=== PATIENT | female | born 1945 | race Caucasian/White ===

== ENCOUNTER 2022-07-15 14:50 | Emergency (ER) | payer OTHER, BC ==
[2022-07-15] MEDS ORDERED: KETOROLAC TROMETHAMINE 30 MG/1 ML VIAL IM ONE (15:02)
[2022-07-15] MEDS ORDERED: KETOROLAC TROMETHAMINE 30 MG/1 ML VIAL ONE (15:04)
[2022-07-15 15:06] VITALS: BP 120/80; PULSE 86; RESP 18; TEMP 98.7; BMI 24.8
== END 2022-07-15 15:50 | disposition home or self-care (01) ==
LOC: FER 14:50
PROC: 3E0233Z Introduction of Anti-inflammatory into Muscle, Percutaneous Approach (ICD-10-PCS; principal; 2022-07-15)
DX: M25.561 Pain in right knee (principal)
CPT/HCPCS: 93971-TC; 99284-25

== ENCOUNTER 2024-05-06 07:37 | Day surgery (SDC) | payer OTHER, BC ==
[2024-05-03 13:38] VITALS: BMI 25.9
[2024-05-06 09:52] VITALS: RESP 18
[2024-05-06 11:12] VITALS: TEMP 97.8
[2024-05-06 12:02] VITALS: BP 135/65; PULSE 85
== END 2024-05-06 12:42 | disposition home or self-care (01) ==
LOC: JASU-ENDO 07:37
PROVIDERS: ATTEND Internal Medicine Gastroenterology
PROC: 0DB68ZX Excision of Stomach, Via Natural or Artificial Opening Endoscopic, Diagnostic (ICD-10-PCS; 2024-05-06)
PROC: 0DB78ZX Excision of Stomach, Pylorus, Via Natural or Artificial Opening Endoscopic, Diagnostic (ICD-10-PCS; 2024-05-06)
PROC: 0DJD8ZZ Inspection of Lower Intestinal Tract, Via Natural or Artificial Opening Endoscopic (ICD-10-PCS; principal; 2024-05-06 10:00)
DX: Z12.11 Encounter for screening for malignant neoplasm of colon (principal); K57.30 Diverticulosis of large intestine without perforation or abscess without bleeding; R10.84 Generalized abdominal pain
CPT/HCPCS: 43239; G0121; 88305-TC; 88342-TC